=== PATIENT | female | born 1935 | race Caucasian/White ===

== ENCOUNTER → 2016-04-26 | Outpatient (CLI) | payer OTHER ==
--- NOTE | 2016-04-26 09:08 | US ---
Aortic Ultrasound History: Aortic stent. Comparison: July 06, 2012. Findings: The proximal aorta measures 2.3 x 2.7 cm (AP x transverse), the mid aorta measures 2.0 x 2 .5 cm, and the distal aorta measures 2.0 x 2.1 cm. The right common iliac measures 1.1 x 1.0 cm (AP x transverse) and the left common iliac measures 1.2 x 1.4 cm. The stent is poorly visualized in the mid and distal aorta. Impression: Normal caliber aorta with no visible aneurysm. Limited visualization of the stent.
== END ==
LOC: BRMIMAGING 08:31
PROVIDERS: ATTEND Family Medicine
DX: Z95.5 Presence of coronary angioplasty implant and graft (principal)